=== PATIENT | female | born 1990 | race Caucasian/White ===

== ENCOUNTER 2018-12-29 12:39 | Outpatient (CLI) | payer OTHER ==
[2018-12-29] MEDS: LACTATED RINGER'S 1,000 ML IV (15:29)
[2018-12-29] MEDS: ACETAMINOPHEN 1000MG/100ML IV 100 ML IVPB (15:29)
== END 2018-12-29 17:26 | disposition home or self-care (01) ==
LOC: OBT 12:39 → L-D 12:39 → OBT 17:26
DX: O48.0 Post-term pregnancy (principal); Z3A.40 40 weeks gestation of pregnancy
CPT/HCPCS: 76818

== ENCOUNTER 2018-12-31 06:46 | Inpatient (IN) | payer OTHER ==
[2018-12-31] MEDS ORDERED: LIDOCAINE 1% (MPF) 30 ML INJ INJ (07:30)
[2018-12-31] MEDS ORDERED: METHYLERGONOVINE 0.2 MG INJ IM (07:30)
[2018-12-31] MEDS ORDERED: OXYTOCIN 30 UNITS/LR 500 ML IV ×3 (07:30→14:00)
[2018-12-31] MEDS ORDERED: BUTORPHANOL 2 MG INJ IV (07:30)
[2018-12-31] MEDS ORDERED: CARBOPROST 250 MCG INJ IM ×2 (07:30→14:00)
[2018-12-31] MEDS ORDERED: MISOPROSTOL 200 MCG TAB PR ×2 (07:30→14:00)
[2018-12-31] MEDS: LACTATED RINGER'S 1,000 ML IV ×5 (07:32→23:08)
[2018-12-31 07:42] LABS: ADD MAN DIFF? NO
[2018-12-31 07:46] LABS: WHITE BLOOD COUNT 7.2 10^3/ul (4.8-10.8)
[2018-12-31 07:46] LABS: BASOPHILS % 0.3 % (0.0-2.0); EOSINOPHILS # 0.4 10^3/ul (0.0-0.5); EOSINOPHILS % 5.4 % (0.0-7.0); HEMATOCRIT 28.4 % (37.0-47.0); HEMOGLOBIN 9.4 g/dl (12.0-16.0); LYMPHOCYTES # 1.9 10^3/ul (0.8-2.9); LYMPHOCYTES % 26.3 % (15.0-51.0); MEAN CORPUSCULAR HEMOGLOBIN 29.1 pg (29.0-33.0); MEAN CORPUSCULAR HGB CONC 33.1 g/dl (32.0-37.0); MEAN CORPUSCULAR VOLUME 87.9 fl (82.0-101.0); MEAN PLATELET VOLUME 10.1 fl (7.4-10.4); MONOCYTE # 0.5 10^3/ul (0.3-0.9); MONOCYTES % 7.4 % (0.0-11.0); NEUTROPHIL # 4.3 10^3/ul (1.6-7.5); NEUTROPHILS % 60.2 % (39.0-77.0); PLATELET COUNT 173 10^3/UL (140-415); RED BLOOD COUNT 3.23 10^6/ul (4.20-5.40)
[2018-12-31 08:07] LABS: PROTIME 12.3 Sec (11.9-14.9)
[2018-12-31 08:08] LABS: PARTIAL THROMBOPLASTIN TIME 27.8 Sec (23.0-35.0)
[2018-12-31 08:35] LABS: HEPATITIS B SURFACE ANTIGEN NEGATIVE (NEGATIVE)
[2018-12-31] MEDS ORDERED: FENTAnyl 2MCG/ML-ROPIV 0.2% 100 ML BAG EPI (10:00)
[2018-12-31] MEDS ORDERED: NALOXONE (0.4 MG/ML) INJ IV (10:00)
[2018-12-31] MEDS: OXYTOCIN 30 UNITS/LR 500 ML IV ×3 (10:38→18:06)
[2018-12-31] MEDS ORDERED: LACTATED RINGER'S 1,000 ML IV* (13:51)
[2018-12-31] MEDS ORDERED: HYDROCODONE/APAP (5/325) TAB PO (14:00)
[2018-12-31] MEDS ORDERED: DIPHENHYDRAMINE 50 MG INJ IV (14:00)
[2018-12-31] MEDS ORDERED: MAGNESIUM HYDROXIDE 30ML CUP PO (14:00)
[2018-12-31] MEDS ORDERED: DIBUCAINE 1% 30 GM OINT TOP (14:00)
[2018-12-31] MEDS ORDERED: NA PHOSPHATE/BIPHOS 133 ML ENEMA PR (14:00)
[2018-12-31] MEDS ORDERED: ONDANSETRON 4 MG TAB PO (14:00)
[2018-12-31] MEDS ORDERED: DIPHENHYDRAMINE 25 MG CAP PO (14:00)
[2018-12-31] MEDS ORDERED: SENNA/DOCUSATE NA (8.6MG/50MG) TAB PO (14:00)
[2018-12-31] MEDS ORDERED: ONDANSETRON 4 MG INJ IV (14:00)
[2018-12-31 14:05] LABS: CBV Base Excess -4.8 mmol/L; Cord Blood Venous AADO2 63.5 mmHg; Cord Blood Venous pO2 29.2 mmHG (15.0-45.0); MODE ROOM AIR; Sample Type CBA; Site CORD
[2018-12-31 14:06] LABS: AADO2 Cord Arterial 64.5 mmHg; Arterial Cord Blood pCO2 47.3 mmHG (25-50); CBA Base Excess -4.6 mmol/L; CBA COHb 1.1 %; CBA Oxygen Sat 64.8 mmHG; CBA Total Hemglobin 15.5 g/dl; Cord Blood Arterial pO2 28.6 mmHG (15.0-45.0); Fraction OxyHgb Cord Arterial 63.2 %; MODE ROOM AIR; MetHgb Cord Arterial 1.3 %; Sample Type CBV; Site CORD
[2018-12-31] MEDS: LANOLIN HPA 1 PKT TOP (18:05)
[2018-12-31] MEDS: WITCH HAZEL/GLYCERIN PAD PR (18:05)
[2018-12-31] MEDS: BENZOCAINE 20% 56 ML SPRAY TOP (18:05)
[2018-12-31] MEDS: IBUPROFEN 600 MG TAB PO ×2 (18:05→23:59)
[2018-12-31 21:40] LABS: RAPID PLASMA REAGIN NONREACTIVE (NR)
[2018-12-31] MEDS: SENNA/DOCUSATE NA (8.6MG/50MG) TAB PO (22:18)
[2019-01-01] MEDS: IBUPROFEN 600 MG TAB PO ×4 (06:49→23:37)
[2019-01-01] MEDS: LACTATED RINGER'S 1,000 ML IV ×2 (06:50→15:08)
[2019-01-01 08:24] LABS: ADD MAN DIFF? NO
[2019-01-01 08:27] LABS: BASOPHILS % 0.3 % (0.0-2.0); EOSINOPHILS # 0.3 10^3/ul (0.0-0.5); EOSINOPHILS % 3.1 % (0.0-7.0); HEMATOCRIT 27.6 % (37.0-47.0); LYMPHOCYTES # 2.1 10^3/ul (0.8-2.9); LYMPHOCYTES % 26.4 % (15.0-51.0); MEAN CORPUSCULAR HEMOGLOBIN 28.8 pg (29.0-33.0); MEAN CORPUSCULAR HGB CONC 32.6 g/dl (32.0-37.0); MEAN CORPUSCULAR VOLUME 88.5 fl (82.0-101.0); MEAN PLATELET VOLUME 10.5 fl (7.4-10.4); MONOCYTE # 0.4 10^3/ul (0.3-0.9); MONOCYTES % 5.4 % (0.0-11.0); NEUTROPHIL # 5.1 10^3/ul (1.6-7.5); NEUTROPHILS % 64.4 % (39.0-77.0); PLATELET COUNT 161 10^3/UL (140-415); RED BLOOD COUNT 3.12 10^6/ul (4.20-5.40); RED CELL DISTRIBUTION WIDTH 15.5 % (11.5-14.5)
[2019-01-01] MEDS: SENNA/DOCUSATE NA (8.6MG/50MG) TAB PO ×2 (09:21→20:44)
[2019-01-01] MEDS: HYDROCODONE/APAP (5/325) TAB PO ×2 (09:22→23:38)
[2019-01-02] MEDS: IBUPROFEN 600 MG TAB PO ×2 (06:10→12:07)
[2019-01-02] MEDS: SENNA/DOCUSATE NA (8.6MG/50MG) TAB PO (09:50)
[2019-01-02] MEDS: DIPHTH/TET/ACEL PERTUSS (ADULT) 0.5 ML VIAL IM* (09:51)
[2019-01-02] MEDS: VARICELLA VACCINE LIVE/PF 1,350 UNIT/0.5 ML ML SC* (09:52)
[2019-01-02] MEDS: MEASLES,MUMPS,RUBELLA VACCINE INJ SC* (09:52)
== END 2019-01-02 13:32 | disposition home or self-care (01) | DRG 807 ==
LOC: OBT 06:46 → L-D 06:48 → OBT 07:02 → L-D 07:02 → PP1 16:15
PROVIDERS: Specialist
PROC: 10E0XZZ Delivery of Products of Conception, External Approach (ICD-10-PCS; principal; 2018-12-31)
PROC: 0HQ9XZZ Repair Perineum Skin, External Approach (ICD-10-PCS; 2018-12-31)
DX: O48.0 Post-term pregnancy (principal); O69.81X0 Labor and delivery complicated by cord around neck, without compression, not applicable or unspecified; O70.0 First degree perineal laceration during delivery; Z3A.40 40 weeks gestation of pregnancy; Z37.0 Single live birth
CPT/HCPCS: 36415; 36600; 62322; 82803; 85025; 85610; 85730; 86592; 86850; 86900; 86901; 87340; 90715; 90716; 99464